=== PATIENT | female | born 1985 | race Caucasian/White ===

== ENCOUNTER 2021-06-25 03:22 | Emergency (ER) | payer MEDICARE, OTHER ==
[2021-06-25] MEDS ORDERED: Lactated Ringers 1,000 ML IV ONE (04:00)
[2021-06-25] MEDS ORDERED: cefTRIAXone 2 GM in Premix Bag 1 BAG IV ONE (04:03)
[2021-06-25] MEDS ORDERED: Dexamethasone 10 MG/ML SDV IVPUSH ONE (04:05)
[2021-06-25] MEDS ORDERED: fentaNYL 50 MCG/ML SDV IVPUSH ONE (04:10)
[2021-06-25] MEDS ORDERED: VANCOmycin 2 GM/400 ML 2 GM in Premix Bag 1 BAG IV ONE (04:30)
[2021-06-25 04:31] LABS: BLOOD UREA NITROGEN,BUN 5 mg/dL (7.0-18.0); CHLORIDE,CL 102 mmol/L (98-107); GLUCOSE RANDOM 112 mg/dL (74-106); POTASSIUM,K 3.8 mmol/L (3.5-5.1); SODIUM,NA 138 mmol/L (136-145)
[2021-06-25] MEDS ORDERED: Ampicillin 2 GM in Sodium Chloride 0.9% 100 ML IV ONE (04:35)
[2021-06-25] MEDS ORDERED: Lactated Ringers 1,000 ML IV STA (05:15)
[2021-06-25 05:32] LABS: CORONAVIRUS COVID-19 NAA NEGATIVE (NEGATIVE); INFLUENZA A NAA NEGATIVE (NEGATIVE); INFLUENZA B NAA NEGATIVE (NEGATIVE)
[2021-06-25] MEDS ORDERED: HYDROmorphone 2 MG/ML Syringe IVPUSH ONE (08:03)
[2021-06-25] MEDS ORDERED: Ondansetron 4 MG/2 ML SDV IVPUSH ONE (08:03)
[2021-06-25 08:29] VITALS: BP 123/78; PULSE 114
[2021-06-25] MEDS ORDERED: VANCOmycin 1.5 GM/300 ML 300 ML IV SCH (14:00)
== END 2021-06-25 09:06 ==
LOC: MW.ED 03:22
DX: G03.9 Meningitis, unspecified (principal); Z20.822 Contact with and (suspected) exposure to COVID-19
CPT/HCPCS: 0240U; 36415; 62270; 70450; 80053; 85025; 87040; 93005; 96365; 96367; 96375; 99285; J0133; J0290; J0696; J1100; J1170; J2405; J3010; J3370; J7050; J7120; 93010; 99284

== ENCOUNTER 2024-02-22 08:29 | Day surgery (SDC) | payer MEDICARE, OTHER ==
[2024-02-22] MEDS: Lactated Ringers 1,000 ML IV SCH (08:49)
[2024-02-22] MEDS ORDERED: propofoL 50 ML ONE (09:01)
[2024-02-22] MEDS ORDERED: Propofol 200 MG/20 ML SDV ONE ×2 (10:08→11:32)
[2024-02-22] MEDS ORDERED: fentaNYL 100 MCG/2 ML SDV ONE (10:18)
[2024-02-22] MEDS ORDERED: Ondansetron 4 MG/2 ML SDV ONE (10:21)
[2024-02-22 11:20] VITALS: BP 118/70; PULSE 69
== END 2024-02-22 11:20 | disposition home or self-care (01) ==
LOC: MW.SDS 08:29
PROVIDERS: ATTEND Surgery
DX: K20.90 Esophagitis, unspecified without bleeding (principal); K57.30 Diverticulosis of large intestine without perforation or abscess without bleeding; K44.9 Diaphragmatic hernia without obstruction or gangrene; F41.9 Anxiety disorder, unspecified; F32.A Depression, unspecified; Z79.899 Other long term (current) drug therapy
CPT/HCPCS: 43239; 45380; 81025; 88305; J2405; J2704; J3010; J7120; 00813